=== PATIENT | male | born 1975 | race Caucasian/White ===

== ENCOUNTER 2024-11-15 02:32 | Inpatient (IN) | payer OTHER ==
[2024-11-15 03:47] LABS: BASO % 0.3 % (0-2.0); EOS % 2.4 % (0-4.5); HEMATOCRIT 29.6 % (35.4-49); HEMOGLOBIN 9.8 GM/dL (11.7-16.9); LYMPH % 34.9 % (8-40); MEAN CELL VOLUME 102.9 fl (80-96); MEAN PLT VOLUME 8.1 fl (7.5-11.1); MONO % 9.1 % (3.8-10.2); NEUT % 53.3 % (42.8-82.8); PLATELET COUNT 395 10^3/uL (134-434); RBC 2.87 M/mm3 (4.00-5.60); RDW 14.1 % (11.9-15.9); VENOUS BASE EXCESS 7.9 mmol/L (-2-2); VENOUS O2 SATURATION 88.7 % (70-80); VENOUS PCO2 47.3 mmHg (38-52); VENOUS PH 7.462 (7.310-7.410); WHITE BLOOD COUNT 9.2 K/mm3 (4.0-10.0)
[2024-11-15] MEDS ORDERED: ACETAMINOPHEN INJECTION 100 ML ONE (03:58)
[2024-11-15 04:00] LABS: POTASSIUM 5.5 mmol/L (3.5-5.1)
[2024-11-15 04:01] LABS: CALCIUM 8.7 mg/dL (8.5-10.1); INR 1.28 (0.83-1.09); PROTHROMBIN TIME (PATIENT) 14.6 SEC (9.7-13.0)
[2024-11-15] MEDS: ACETAMINOPHEN 1000 MG/100 ML BAG IVPB ONE (04:01)
[2024-11-15 04:02] LABS: ALBUMIN 2.1 g/dl (3.4-5.0); BLOOD UREA NITROGEN 18.8 mg/dL (7-18)
[2024-11-15 04:03] LABS: ACTIVATED PTT 31.9 SECONDS (25.2-36.5)
[2024-11-15 04:05] LABS: CREATININE 0.4 mg/dL (0.55-1.3)
[2024-11-15 04:08] LABS: BILIRUBIN,TOTAL 0.2 mg/dL (0.2-1); TOT PROT 5.5 g/dl (6.4-8.2)
[2024-11-15 05:06] LABS: PH,URINE >= 9.0 (5.0-8.0); URINE APPEARANCE CLEAR; URINE BILIRUBIN NEGATIVE (NEGATIVE); URINE COLOR YELLOW; URINE GLUCOSE (UA) NEGATIVE (NEGATIVE); URINE KETONE NEGATIVE (NEGATIVE); URINE LEUK ESTERASE NEGATIVE (NEGATIVE); URINE NITRITE NEGATIVE (NEGATIVE); URINE PROTEIN NEGATIVE (NEGATIVE)
[2024-11-15 05:20] LABS: POTASSIUM 5.8 mmol/L (3.5-5.1)
[2024-11-15 05:22] LABS: CALCIUM 8.7 mg/dL (8.5-10.1)
[2024-11-15 05:23] LABS: ALBUMIN 2.1 g/dl (3.4-5.0); BLOOD UREA NITROGEN 18.9 mg/dL (7-18)
[2024-11-15 05:25] LABS: CREATININE 0.4 mg/dL (0.55-1.3)
[2024-11-15 05:27] LABS: TOT PROT 5.6 g/dl (6.4-8.2)
[2024-11-15 05:52] LABS: BILIRUBIN,TOTAL 0.3 mg/dL (0.2-1)
[2024-11-15] MEDS ORDERED: clonazePAM 2 MG TABLET ONE (07:45)
[2024-11-15] MEDS: clonazePAM 2 MG TABLET PO ONE (08:03)
[2024-11-15] MEDS ORDERED: lamoTRIgine 100 MG TABLET ONE (08:06)
[2024-11-15] MEDS ORDERED: LACOSAMIDE 50 MG TABLET PO ONE (08:25)
[2024-11-15] MEDS: LACOSAMIDE 100 MG TABLET PO ONE (08:33)
[2024-11-15] MEDS: LACTATED RINGERS SOLUTION 1,000 ML/1,000 ML INFUS.BAG IV STA ×2 (10:25→11:14)
[2024-11-15] MEDS: DIVALPROEX SODIUM 125 MG SPRINKLE CAPS PO ONE (11:14)
[2024-11-15] MEDS ORDERED: DIAZEPAM NS PRN (11:29)
[2024-11-15 13:53] LABS: HEMATOCRIT 34.9 % (35.4-49); HEMOGLOBIN 11.4 GM/dL (11.7-16.9); MCH 33.9 pg (25.7-33.7); MCHC 32.6 g/dl (32.0-35.9); MEAN CELL VOLUME 103.9 fl (80-96); MEAN PLT VOLUME 7.5 fl (7.5-11.1); PLATELET COUNT 375 10^3/uL (134-434); RBC 3.36 M/mm3 (4.00-5.60); RDW 14.3 % (11.9-15.9); WHITE BLOOD COUNT 7.3 K/mm3 (4.0-10.0)
[2024-11-15 14:13] LABS: POTASSIUM 4.5 mmol/L (3.5-5.1)
[2024-11-15 14:15] LABS: CALCIUM 8.7 mg/dL (8.5-10.1)
[2024-11-15 14:17] LABS: ALBUMIN 1.8 g/dl (3.4-5.0); BLOOD UREA NITROGEN 14.8 mg/dL (7-18)
[2024-11-15 14:20] LABS: BILIRUBIN,TOTAL 0.3 mg/dL (0.2-1); CREATININE 0.3 mg/dL (0.55-1.3)
[2024-11-15] MEDS: lamoTRIgine 100 MG TABLET PO SCH (21:33)
[2024-11-15] MEDS: DOCUSATE NA 100 MG/10 ML UNIT-DOSE CUPS PO SCH (21:34)
[2024-11-15] MEDS: DIVALPROEX SODIUM 125 MG SPRINKLE CAPS PO SCH (21:35)
[2024-11-16 07:40] VITALS: BMI 18.3
[2024-11-16 08:46] LABS: MAGNESIUM 1.7 mg/dL (1.8-2.4)
[2024-11-16 08:50] LABS: PHOSPHOROUS 2.5 mg/dL (2.5-4.9)
[2024-11-16] MEDS: HEPARIN NA (PORCINE) 5,000 UNITS/ML 1ML VIAL SQ SCH (10:43)
[2024-11-16] MEDS: FAMOTIDINE 20 MG TABLET PO SCH (10:43)
[2024-11-16] MEDS ORDERED: DIAZEPAM NS PRN (20:08)
[2024-11-16] MEDS: LACTATED RINGERS SOLUTION 1,000 ML/1,000 ML INFUS.BAG IV SCH (20:09)
[2024-11-16] MEDS ORDERED: ACETAMINOPHEN 1000 MG/100 ML BAG IVPB PRN ×2 (20:41→20:46)
[2024-11-16 22:22] VITALS: RESP 18
[2024-11-18] MEDS: SODIUM CHLORIDE 1,000 ML IV SCH (00:21)
[2024-11-18 07:44] LABS: BASO % 0.4 % (0-2.0); EOS % 1.8 % (0-4.5); HEMATOCRIT 26.9 % (35.4-49); LYMPH % 49.9 % (8-40); MCH 34.4 pg (25.7-33.7); MCHC 33.5 g/dl (32.0-35.9); MEAN CELL VOLUME 102.6 fl (80-96); MEAN PLT VOLUME 7.3 fl (7.5-11.1); MONO % 7.6 % (3.8-10.2); NEUT % 40.3 % (42.8-82.8); PLATELET COUNT 385 10^3/uL (134-434); RBC 2.62 M/mm3 (4.00-5.60); RDW 14.3 % (11.9-15.9); WHITE BLOOD COUNT 5.2 K/mm3 (4.0-10.0)
[2024-11-18 07:58] LABS: POTASSIUM 4.2 mmol/L (3.5-5.1)
[2024-11-18 08:06] LABS: CALCIUM 8.7 mg/dL (8.5-10.1)
[2024-11-18 08:09] LABS: BLOOD UREA NITROGEN 8.9 mg/dL (7-18)
[2024-11-18 08:10] LABS: MAGNESIUM 1.7 mg/dL (1.8-2.4)
[2024-11-18 08:13] LABS: CREATININE 0.4 mg/dL (0.55-1.3)
[2024-11-18 08:14] LABS: BILIRUBIN,TOTAL 0.3 mg/dL (0.2-1); TOT PROT 5.2 g/dl (6.4-8.2)
[2024-11-18 15:14] VITALS: BP 92/71; PULSE 93; TEMP 97.5
== END 2024-11-18 15:36 | DRG 137 ==
LOC: JER 02:32 → JERBED 08:02 → J7W 16:19
PROVIDERS: ADMIT Internal Medicine
DX: J69.0 Pneumonitis due to inhalation of food and vomit (principal); F73 Profound intellectual disabilities; E46 Unspecified protein-calorie malnutrition; I95.9 Hypotension, unspecified; F84.0 Autistic disorder; G40.909 Epilepsy, unspecified, not intractable, without status epilepticus; Q92 Other trisomies and partial trisomies of the autosomes, not elsewhere classified; R09.02 Hypoxemia; R63.4 Abnormal weight loss; Z68.1 Body mass index [BMI] 19.9 or less, adult; R13.10 Dysphagia, unspecified
CPT/HCPCS: 0241U-QW; 36415; 71045-TC-FY; 80053; 81003; 82728; 82803; 83540; 83550; 83605; 83735; 84100; 84132; 84484; 85025; 85027; 85045; 85610; 85730; 87040; 87086; 87635; 93005; 93010; 99285-25; J0131; J1644